=== PATIENT | female | born 1960 | race Caucasian/White ===

== ENCOUNTER 2018-08-11 09:23 | Outpatient (CLI) | payer OTHER | END 2018-08-11 09:24 | disposition home or self-care (01) | LOC: BICMAMMO 09:23 | PROVIDERS: ATTEND Family Medicine | DX: Z12.31 Encounter for screening mammogram for malignant neoplasm of breast (principal); R92.1 Mammographic calcification found on diagnostic imaging of breast | CPT/HCPCS: 77067 ==

== ENCOUNTER 2020-06-20 12:10 | Outpatient (CLI) | payer OTHER ==
--- NOTE | 2020-06-20 12:43 | MMO ---
Bilateral MAMMO Bilat Screen [facility]. CLINICAL HISTORY: Patient is 60 years old and is seen for screening. The patient has no family history of breast cancer. The patient has no personal history of cancer. The patient has a history of left Excisional Biopsy in November, - benign. VIEWS: The views performed were: bilateral craniocaudal with tomosynthesis and bilateral mediolateral oblique with tomosynthesis. FILMS COMPARED: The present examination has been compared to prior imaging studies performed at [facility] on 01/03/2015, 06/27/2015, 06/28/2016 and 07/20/2017. This study has been interpreted with the assistance of computer-aided detection. MAMMOGRAM FINDINGS: The breasts are almost entirely fat. There are stable benign appearing calcifications seen in both breasts. There are also vascular calcifications. There are no suspicious masses, suspicious calcifications, or new areas of architectural distortion. IMPRESSION: THERE IS NO MAMMOGRAPHIC EVIDENCE OF MALIGNANCY. A ROUTINE FOLLOW-UP MAMMOGRAM IN 1 YEAR IS RECOMMENDED. THE RESULTS OF THIS EXAM WERE SENT TO THE PATIENT. ACR BI-RADS Category 2 - Benign finding MAMMOGRAPHY NOTE: 1. A negative mammogram report should not delay a biopsy if a dominant of clinically suspicious mass is present. 2. Approximately 10% to 15% of breast cancers are not detected by mammography. 3. Adenosis and dense breasts may obscure an underlying neoplasm. Reported by: ARNEL ROWLAND MD Electonically Signed: [id number]
== END 2020-06-20 12:11 | disposition home or self-care (01) ==
LOC: BICMAMMO 12:10
PROVIDERS: ATTEND Family Medicine
DX: Z12.31 Encounter for screening mammogram for malignant neoplasm of breast (principal); Z91.89 Other specified personal risk factors, not elsewhere classified
CPT/HCPCS: 77063; 77067

== ENCOUNTER 2021-11-25 10:18 | Outpatient (CLI) | payer OTHER | END 2021-11-25 10:19 | disposition home or self-care (01) | LOC: BICRAD 10:18 | PROVIDERS: ATTEND Family Medicine | DX: R05.9 Cough, unspecified (principal) | CPT/HCPCS: 71046 ==